=== PATIENT | female | born 1995 | race Caucasian/White ===

== ENCOUNTER 2019-08-15 14:54 | Observation (INO) | payer MEDICAID ==
[~2019-08-15] VITALS: Ht 154.9 cm; Wt 66.7 kg
[2019-08-15] MEDS ORDERED: CITRIC ACID/SODIUM CITRATE SOLN 30ML UDC PO NR (16:30)
[2019-08-15] MEDS ORDERED: ONDANSETRON 4MG ODT PO NR (16:30)
== END 2019-08-15 17:15 | disposition home or self-care (01) ==
LOC: 8 EST A/PP 14:54
PROVIDERS: ADMIT Specialist; ATTEND Specialist
DX: O21.2 Late vomiting of pregnancy (principal); O26.892 Other specified pregnancy related conditions, second trimester; R10.30 Lower abdominal pain, unspecified; Z3A.25 25 weeks gestation of pregnancy
CPT/HCPCS: 99281; G0378; Q0162